=== PATIENT | male | born 1940 | race Caucasian/White ===

== ENCOUNTER → 2016-05-29 | Outpatient (CLI) | payer OTHER ==
[~2016-05-29] MED LIST: APIX1TAB3 PO; ASPI81TA28 PO; ATEN50TA8 PO; CHOL100010 PO; CLOB-65 TOP; KETO0.5S33 OPL; MULT-506 PO; NITR1CAP33 PO; NTRGSL/4 UT; PRED1SUS3 OPL; SIMV20TA2 PO; VITA400C15 PO
[2016-05-29 14:16] LABS: URINE APPEARANCE TURBID (CLEAR); URINE BILIRUBIN NEG (NEG); URINE COLOR DK YELLOW; URINE NITRITE NEG (NEG); URINE SPECIFIC GRAVITY 1.022 (1.000-1.030); UROBILINOGEN NEG (NEG)
[2016-05-29 14:19] LABS: MANUAL MICROSCOPIC REQUIRED? NO; REVIEW REQ? NO
== END | disposition home or self-care (01) ==
LOC: C.LABMFLN 11:15
PROVIDERS: ATTEND Urology
DX: R39.15 Urgency of urination (principal)

== ENCOUNTER → 2016-08-01 | Day surgery (SDC) | payer OTHER ==
[2016-07-05 10:29] VITALS: Ht 177.8 cm; Wt 92.3 kg
[~2016-08-01] VITALS: Ht 177.8 cm; Wt 92.3 kg
[~2016-08-01] MED LIST changes: +500ML BSS 0.3ML EPI 1:1000PF IRRIG ONE; +ACETAMINOPHEN 325 MG TAB PO PRN; +AMVISC PLUS 0.8ML SYRINGE INT OCU ONE; -ASPI81TA28 PO; +ATROPINE SULFATE 0.1 MG/ML 5ML SYR IV PRN; +BSS FLUSH ONE; +EpHEDrine SULFATE INJ 50 MG/ML AMP IV PRN; +EpINEphrine INJ 1MG/ML AMP 1 MG/ML AMP ONE; +FENTANYL CITRATE INJ 50 MCG/1 ML 2 ML VIAL IV PRN; +FLUMAZENIL 0.1 MG/1 ML 10 ML VIAL IV PRN; +HYDROmorphone INJ 2 MG/ML SYR/VIAL IV PRN; +LABETALOL HCL IV 5 MG/ML 20ML IV PRN; +LACTATED RINGER'S 1000ML 500 ML IV SCH; +LIDOCAINE 3.5% OPH GEL PER APPLICATION CHARGE ONE; +LIDOCAINE HCL 1% MPF 2 ML VIAL ONE; +MEPERIDINE HCL 25 MG/ML CARP IV PRN; +METO25TA56 PO; +MIDAZOLAM HCL 1 MG/ML 2ML VIAL ONE; +MIX: 4ML BSS 1ML EPI 1:1000 PF INSTIL ONE; +NALOXONE HCL 0.4 MG/1 ML VIAL/CARP IV PRN; +OCUCOAT 1 ML SOLN IO ONE; +ONDANSETRON INJ 2 MG/ML 2 ML VIAL IV PRN; +OXYC-57 PO; +PHENYLEPHRINE 100MCG/ML 5ML SYR IV PRN; +POVIDONE-IODINE OP SOLN 30 ML BTL ONE; +PROPARACAINE 0.5% OP SOLN PER DROP CHARGE OPL SCH; +TAMS0.4C38 PO; +TOBRAMYCIN/DEXAMETHASONE OPH OINT PER APPLN CHARGE ONE
[2016-08-01] MEDS: PHENYLEPHRINE HCL 2.5% OP SOLN PER DROP CHARGE OPL SCH ×2 (10:05→10:10)
[2016-08-01] MEDS: TROPICAMIDE 1% OP SOLN PER DROP CHARGE OPL SCH ×2 (10:06→10:11)
[2016-08-01] MEDS: CYCLOPENTOLATE HCL 1% OP SOLN PER DROP CHARGE OPL SCH ×2 (10:07→10:12)
[2016-08-01] MEDS: KETOROLAC 0.5% OP SOLN PER DROP CHARGE OPL SCH ×2 (10:08→10:13)
[2016-08-01] MEDS: GATIFLOXACIN OP SOLN PER DROP CHARGE OPL SCH ×2 (10:09→10:19)
--- NOTE | 2016-08-01 10:29 | History & Physical Bridge - [place] ---
H&P Re-Evaluation Bridge Note: I have examined the patient, reviewed the History & Physical and in the interval since the performance of the History & Physical I have noted the following changes of clinical significance: No changes noted
--- NOTE | 2016-08-01 11:15 | Discharge Instructions-SurgCtr ---
Discharge Instructions Date of Service August 01, 2016. Visit Reason for Visit: Left Cataract Discharge Discharge Diagnosis / Problem: cataract Discharge Goals Goal(s): Improve function Activity Recommendations Activity Limitations: per Instructions/Follow-up section Anesthesia . Post Anesthesia Instructions: If you have had General Anesthesia or IV Sedation: * Do not drive today. * Resume driving when surgeon permits. * Do not make important decisions or sign legal documents today. * Call surgeon for: 1. Temperature elevations greater than 101 degrees F. 2. Uncontrollable pain. 3. Excessive bleeding. 4. Persistent nausea and vomiting. 5. Medication intolerance (nausea, vomiting or rash). * For nausea and vomiting use only clear liquids such as: tea, soda, bouillon until nausea subsides, then gradually increase diet as tolerated. * If you have any concerns or questions, call your surgeon's office. If physician is unavailable and it is an emergency, call 911 or go to the nearest emergency room. . Instructions / Follow-Up Instructions / Follow-Up ACTIVITY RECOMMENDATIONS: * No strenuous lifting, jogging or running for 4 days * No swimming or yard work for 1 week. * Limited bending is permitted, such as putting on shoes. RETURN TO SCHOOL/WORK: No work until seen by physician in office. MEDICATIONS: Resume previous medications unless instructed otherwise by your surgeon. This includes eye drops for glaucoma. Zymaxid/Gatifloxacin (garcia cap) - one drop every 2 hours until bedtime Nevanac/Ilevro/Prolensa/Ketorolac (arias cap) - one drop every 4 hours until bedtime Prednisolone (white/pink cap, SHAKE WELL) - one drop every 2 hours until bedtime Starting tomorrow - all 3 drops every 4 hours until seen in the office Optive drops - as needed for discomfort SPECIAL CARE INSTRUCTIONS: * Wear eyeshield when sleeping, for four nights. * You may wear your own glasses or sunglasses while awake. * You may read or watch TV * You may shower and wash your face, but be gentle around the eye and pat dry. * Blurry vision and mild irritation are normal. * Call office if pain is more severe or vision becomes dark at . FOLLOW UP VISIT: Follow-up with Dr Spears tomorrow. Diet Recommendations Home Diet: resume previous diet Procedures Procedures Performed: Left Cataract Phacoemulsification With Intraocular Lens Implant Pending Studies Studies pending at discharge: no Medical Emergencies . Who to Call and When: Medical Emergencies: If at any time you feel your situation is an emergency, please call 911 immediately. . Non-Emergent Contact Non-Emergency issues call your: Super[employer] . . "Provider Documentation" section prepared by Nahid Spears. .
--- NOTE | 2016-08-01 11:16 | [facility] Operative Report ---
Operative Report Date of Service August 01, 2016. Operative Report 1. PREOPERATIVE DIAGNOSIS: Cataract of the left eye. 2. POSTOPERATIVE DIAGNOSIS: Same. 3. PROCEDURE: Phacoemulsification with intraocular lens implantation of the left eye. SURGEON: Dr. Nahid Spears. ANESTHESIA: Topical Lidocaine gel, 1% Non- Preserved intracameral Lidocaine, and monitored intravenous sedation. INDICATIONS FOR THE PROCEDURE: The patient is a 75 - year-old male with a history of cataract of the left eye causing significant visual impairment. The details of the proposed procedure were explained to the patient who asked appropriate questions and following discussion of all risks, benefits and alternatives agreed to have the procedure done. The patient had a know history of taking of flomax. 4. OPERATION AND FINDINGS: DESCRIPTION OF PROCEDURE: After informed consent was obtained, the patient was brought to the Operating Room at the [facility]. The patient was placed in a supine position and then the left eye was prepped and draped in the usual sterile fashion for intraocular surgery. A drop of topical Lidocaine gel was placed in the operative eye. A wire lid speculum was then placed in the fornices. A corneal paracentesis was then created temporally. The Non-Preserved Lidocaine was then instilled into the anterior chamber. Epinephrine with a 1:4 dilution was instilled into the anterior chamber. The anterior chamber was then pressurized with viscoelastic. A 2.0 mm clear corneal incision was then created temporally. A cystotome was inserted into the anterior chamber and used to create a tear in the anterior lens capsule. This capsular tear was then used to create a small flap and the flap was dragged in a counterclockwise direction in order to create a continuous curvilinear capsulorrhexis. Hydrodissection was accomplished with balanced salt solution. Phacoemulsification of the lens nucleus was then performed in a standard [id number] technique. The phaco time was 41 seconds with an average power of 18 %. The remaining cortical material was removed using irrigation aspiration. The capsular bag was then filled with viscoelastic. A B &L LI61A0 +19.5 diopters lens was then loaded into the injector and injected into the capsular bag. The remaining viscoelastic was removed with the irrigation aspiration handpiece. The wound was hydrated and then checked and found to be watertight. The intraocular pressure was checked and found to be adequate. The wire lid speculum was removed and the patient's face was cleaned and dried. TobraDex ointment was placed in the inferior fornix. The patient was discharged to the Recovery Room having tolerated the procedure well. There were no complications. The patient will be seen tomorrow in the office for follow-up. I attest to the content of the Intraoperative Record and any orders documented therein. Any exceptions are noted below.
[2016-08-01 11:46] VITALS: BP 112/79; PULSE 62; TEMP 37; O2SAT 95
--- NOTE | 2016-08-01 11:54 | Anesthesia Progress Nt - [facility] ---
Anesthesia Post Op Note Date & Time August 01, 2016 at 11:55 Vital Signs Pain Intensity: 0 Vital Signs Past 12 Hours Date Time Temp Pulse Resp B/P Pulse Ox O2 Delivery O2 Flow Rate FiO2 08/01/16 11:46 37.0 62 14 112/79 95 Room Air 08/01/16 11:25 37.0 88 14 115/82 96 Room Air 08/01/16 09:58 36.8 70 18 131/79 96 Room Air Notes Mental Status: alert / awake / arousable, participated in evaluation Pt Amnestic to Procedure: Yes Nausea / Vomiting: adequately controlled Pain: adequately controlled Airway Patency, RR, SpO2: stable & adequate BP & HR: stable & adequate Hydration State: stable & adequate Anesthetic Complications: no major complications apparent
== END | disposition home or self-care (01) ==
LOC: X.SURG 09:35
PROVIDERS: ATTEND Ophthalmology
DX: H26.9 Unspecified cataract (principal); I48.91 Unspecified atrial fibrillation; E78.00 Pure hypercholesterolemia, unspecified; L40.9 Psoriasis, unspecified; N40.0 Benign prostatic hyperplasia without lower urinary tract symptoms; R39.15 Urgency of urination; Z85.46 Personal history of malignant neoplasm of prostate; Z80.8 Family history of malignant neoplasm of other organs or systems; Z79.899 Other long term (current) drug therapy; Z79.82 Long term (current) use of aspirin

== ENCOUNTER → 2016-08-26 | Outpatient (CLI) | payer OTHER ==
[~2016-08-26] MED LIST changes: -500ML BSS 0.3ML EPI 1:1000PF IRRIG ONE; -ACETAMINOPHEN 325 MG TAB PO PRN; -AMVISC PLUS 0.8ML SYRINGE INT OCU ONE; -ATROPINE SULFATE 0.1 MG/ML 5ML SYR IV PRN; -BSS FLUSH ONE; -CHOL100010 PO; -CLOB-65 TOP; -EpHEDrine SULFATE INJ 50 MG/ML AMP IV PRN; -EpINEphrine INJ 1MG/ML AMP 1 MG/ML AMP ONE; -FENTANYL CITRATE INJ 50 MCG/1 ML 2 ML VIAL IV PRN; -FLUMAZENIL 0.1 MG/1 ML 10 ML VIAL IV PRN; -HYDROmorphone INJ 2 MG/ML SYR/VIAL IV PRN; -LABETALOL HCL IV 5 MG/ML 20ML IV PRN; -LACTATED RINGER'S 1000ML 500 ML IV SCH; -LIDOCAINE 3.5% OPH GEL PER APPLICATION CHARGE ONE; -LIDOCAINE HCL 1% MPF 2 ML VIAL ONE; -MEPERIDINE HCL 25 MG/ML CARP IV PRN; -MIDAZOLAM HCL 1 MG/ML 2ML VIAL ONE; -MIX: 4ML BSS 1ML EPI 1:1000 PF INSTIL ONE; -NALOXONE HCL 0.4 MG/1 ML VIAL/CARP IV PRN; -OCUCOAT 1 ML SOLN IO ONE; -ONDANSETRON INJ 2 MG/ML 2 ML VIAL IV PRN; -PHENYLEPHRINE 100MCG/ML 5ML SYR IV PRN; -POVIDONE-IODINE OP SOLN 30 ML BTL ONE; -PROPARACAINE 0.5% OP SOLN PER DROP CHARGE OPL SCH; -TOBRAMYCIN/DEXAMETHASONE OPH OINT PER APPLN CHARGE ONE; -VITA400C15 PO
[2016-08-26 13:43] LABS: CHOLESTEROL/HDL RATIO 2.5
== END | disposition home or self-care (01) ==
LOC: C.LABMFLN 09:44
PROVIDERS: ATTEND Family Medicine
DX: I48.91 Unspecified atrial fibrillation (principal); E78.00 Pure hypercholesterolemia, unspecified

== ENCOUNTER 2016-08-29 05:14 | Day surgery (SDC) | payer OTHER ==
--- NOTE | 2016-08-21 09:36 | PAT Medication Instructions ---
Service Date August 21, 2016. Current Home Medication List Apixaban (Eliquis), 5 MG PO BID Atenolol (Tenormin), 50 MG PO QPM Ketorolac Tromethamine (Ophth) (Acular Oph), 1 DROP OPL BID Nitroglycerin (Nitrostat), 0.4 MG UT PRN Prednisolone Acetate (Ophth) (Pred Forte 1% Oph), 1 DROPS OPL BID Simvastatin (Zocor), 20 MG PO QPM Medication Instructions For Your Scheduled Surgery - Check with surgeon/prescribing physician for instructions: Apixaban (Eliquis), 5 MG PO BID - Take the following medications the morning of surgery with a sip of water: Prednisolone Acetate (Ophth) (Pred Forte 1% Oph), 1 DROPS OPL BID Ketorolac Tromethamine (Ophth) (Acular Oph), 1 DROP OPL BID Nitroglycerin (Nitrostat), 0.4 MG UT PRN (if needed) - Take the following medications as scheduled the night before surgery: Simvastatin (Zocor), 20 MG PO QPM Prednisolone Acetate (Ophth) (Pred Forte 1% Oph), 1 DROPS OPL BID Ketorolac Tromethamine (Ophth) (Acular Oph), 1 DROP OPL BID Atenolol (Tenormin), 50 MG PO QPM Nitroglycerin (Nitrostat), 0.4 MG UT PRN (if needed) If you have any questions please call us at [phone] or [phone] or [phone]
[2016-08-21 10:12] LABS: BASO % 1.2 %; BASO ABS # 0.06 K/uL (0-0.2); COMPLETE YES; EOS % 4.8 %; IG% 0.8 %; LYMPH % 28.9 %; LYMPH ABS # 1.49 K/uL (1.2-3.4); MEAN CELL VOLUME 98.6 fL (80-100); MEAN CORPUSCULAR HEMOGLOBIN 33.3 pg (25-34); MEAN CORPUSCULAR HGB CONC 33.8 g/dl (32-36); MONO % 12.4 %; NEUT % 51.9 %; PLATELET COUNT 130 K/uL (130-400); RED BLOOD COUNT 4.26 M/uL (4.7-6.1); WHITE BLOOD COUNT 5.16 K/uL (4.8-10.8)
[2016-08-21 10:14] LABS: URINE APPEARANCE CLEAR (CLEAR); URINE BILIRUBIN NEG (NEG); URINE COLOR YELLOW; URINE NITRITE NEG (NEG); URINE SPECIFIC GRAVITY 1.027 (1.000-1.030); UROBILINOGEN NEG (NEG)
[2016-08-21 10:20] LABS: MANUAL MICROSCOPIC REQUIRED? NO; REVIEW REQ? NO
[2016-08-21 11:33] LABS: BUN/CREATININE RATIO 12.7 (10-20); CREATININE 0.88 mg/dl (0.60-1.40); POTASSIUM 5.6 mmol/L (3.5-5.1)
[~2016-08-29] VITALS: Ht 177.8 cm; Wt 95.6 kg
[~2016-08-29 05:14] MED LIST changes: -METO25TA56 PO; -MULT-506 PO; -NITR1CAP33 PO; -OXYC-57 PO; -TAMS0.4C38 PO
[2016-08-29 05:44] VITALS: BP 141/86; PULSE 68; TEMP 36.7; O2SAT 98; Ht 177.8 cm; Wt 95.6 kg
[2016-08-29] MEDS ORDERED: LACTATED RINGER'S 1000ML 1,000 ML IV SCH (06:00)
[2016-08-29] MEDS ORDERED: CIPROFLOXACIN / D5W 400 MG IV SCH (06:00)
[2016-08-29] MEDS ORDERED: FENTANYL CITRATE INJ 50 MCG/1 ML 2 ML VIAL ONE (06:54)
[2016-08-29] MEDS ORDERED: MIDAZOLAM HCL 1 MG/ML 2ML VIAL ONE (06:54)
[2016-08-29] MEDS ORDERED: KETAMINE HCL INJ 50 MG/ML 10 ML VIAL ONE (06:54)
[2016-08-29] MEDS ORDERED: PROPOFOL IV EMULSION 10 MG/ML 20 ML VIAL IV ONE (07:52)
[2016-08-29] MEDS ORDERED: EpHEDrine SULFATE 50MG/5ML SYR ONE (07:52)
[2016-08-29] MEDS ORDERED: LIDOCAINE HCL 2% 2 ML VIAL (20MG/ML) ONE (07:52)
[2016-08-29] MEDS ORDERED: LACTATED RINGER'S 1000ML 1,000 ML IV PRN (07:53)
[2016-08-29] MEDS ORDERED: METHYLENE BLUE 0.5% 10 ML VIAL ONE (07:53)
[2016-08-29] MEDS ORDERED: SODIUM CHLORIDE 0.9% INJ 10 ML VIAL ONE (07:55)
[2016-08-29] MEDS ORDERED: ONDANSETRON INJ 2 MG/ML 2 ML VIAL IV PRN (08:00)
--- NOTE | 2016-08-29 08:29 | [facility] Post Operative Brief Note ---
Immediate Operative Summary Operative Date Aug 29, 2016. Pre-Operative Diagnosis Bladder Cancer Post-Operative Diagnosis Bladder Cancer Procedure(s) Performed Cystoscopy, Transurethral Resection of Bladder Tumor and Random Bladder Biopsy Surgeon Dr. Hamlet Tate Bag Hanger Surgeon(s) None Estimated Blood Loss 5ml Findings several small superficial appearing bladder tumors around r ureteral orifice Specimens A. Bladder tumor to right lateral trigone tight prostatic urethra with moderate bladder trabeculation Anesthesia 20 cisneros
[2016-08-29] MEDS ORDERED: NITR1CAP33 PO (08:30)
--- NOTE | 2016-08-29 08:33 | Discharge Instructions ---
Discharge Instructions Date of Service Aug 29, 2016. Visit Reason for Visit: Bladder Tumor Discharge Discharge Diagnosis / Problem: post op bladder tumor removal Discharge Goals Goal(s): Decrease discomfort, Improve disease control Medications Restart Stopped Medication(s): elequis in 5 days if urine clear of blood hold if you see blood Activity Recommendations Activity Limitations: per Instructions/Follow-up section (light activity for 1 week) Anesthesia . Post Anesthesia Instructions: If you have had General Anesthesia or IV Sedation: * Do not drive today. * Resume driving when surgeon permits. * Do not make important decisions or sign legal documents today. * Call surgeon for: 1. Temperature elevations greater than 101 degrees F. 2. Uncontrollable pain. 3. Excessive bleeding. 4. Persistent nausea and vomiting. 5. Medication intolerance (nausea, vomiting or rash). * For nausea and vomiting use only clear liquids such as: tea, soda, bouillon until nausea subsides, then gradually increase diet as tolerated. * If you have any concerns or questions, call your surgeon's office. If physician is unavailable and it is an emergency, call 911 or go to the nearest emergency room. . Diet Recommendations Recommended Home Diet: resume previous diet Procedures Procedures Performed: Cystoscopy, Transurethral Resection of Bladder Tumor and Random Bladder Biopsy Pending Studies Studies pending at discharge: no Medical Emergencies . Who to Call and When: Medical Emergencies: If at any time you feel your situation is an emergency, please call 911 immediately. . Non-Emergent Contact Non-Emergency issues call your: Urologist Call Non-Emergent contact if: temperature is above 101, your pain is not controlled unable to void . . "Provider Documentation" section prepared by Hamlet Tate. .
[2016-08-29] MEDS: FENTANYL CITRATE INJ 50 MCG/1 ML 2 ML VIAL IV PRN ×3 (08:38→08:57)
[2016-08-29] MEDS ORDERED: PHENAZOPYRIDINE HCL 200 MG TAB PO ONE (08:54)
[2016-08-29] MEDS ORDERED: PHENAZOPYRIDINE HCL 100 MG TAB PO ONE (08:58)
[2016-08-29] MEDS ORDERED: NURSING VERBAL MED ORDER ONE (09:00)
--- NOTE | 2016-08-29 09:05 | OPERATIVE REPORT ---
DATE OF OPERATION: 08/29/2016 PREOPERATIVE DIAGNOSIS: Bladder tumor. POSTOPERATIVE DIAGNOSIS: Same. PROCEDURE PERFORMED: Small TURBT. SURGEON: Dr. Tate. ANESTHESIA: General. DRAINS: Howard. INDICATIONS: The patient is a 75-year-old male with a history of prostate cancer status post brachytherapy who is a patient of Dr. Abdi. He did cystoscopy on the patient and found several small bladder tumors near the right ureteral orifice. He scheduled the patient for outpatient TURBT, but because he was incapacitated secondary to some medical issues he requested that I do this procedure and the patient agreed. OPERATION AND FINDINGS: DESCRIPTION OF THE PROCEDURE: The patient was taken to the operating room where prior to this Venodyne stockings had been placed and he was given Cipro IV. He was placed in dorsal lithotomy position after general anesthesia was administered and prepped and draped in the usual sterile fashion. A 22 Divehi cystoscope was passed per urethra and the bladder was carefully examined with a 30, 70 and 110 degree lens. There were no strictures, but the prostatic urethra was quite stiff and there was an elevated bladder neck. Once inside the bladder it was clear that there were several small superficial appearing tumors, the largest were posterior lateral and posterior medial to the right ureteral orifice. These were biopsied and sent for pathology and then fulgurated anterior to the right ureteral orifice was biopsied and sent and also fulgurated. Random biopsy was taken in the posterior wall and 1 further area was fulgurated near the left ureteral orifice. It was somewhat difficult to see the right ureteral orifice, so I gave the patient methylene blue. 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 The left ureteral orifice was quite easily seen, but the right was somewhat difficult, and eventually since the methylene blue never came through I did place a dual flex guidewire into what I thought was the orifice to confirm that the right ureteral orifice was clear and nonobstructive. Photo was taken of this as well as the tumors. At the end of the procedure, there was no evidence of any visible bleeding. The cystoscope was removed and a 20 Divehi Howard catheter was placed. The patient was transferred to the recovery room in stable condition. I attest to the content of the Intraoperative Record and any orders documented therein. Any exception s are noted below.
--- NOTE | 2016-08-29 09:27 | Anesthesiology Progress Note ---
Anesthesia Post Op Note Date & Time Aug 29, 2016 at 09:27 Vital Signs Pain Intensity: 5 Vital Signs Past 12 Hours Date Time Temp Pulse Resp B/P (MAP) Pulse Ox O2 Delivery O2 Flow Rate FiO2 08/29/16 09:13 71 15 95 08/29/16 09:13 72 15 08/29/16 09:12 123/83 08/29/16 09:11 36.4 08/29/16 09:08 72 15 93 08/29/16 09:08 75 15 08/29/16 09:07 120/84 08/29/16 09:04 75 16 95 08/29/16 09:04 80 16 08/29/16 09:02 111/90 08/29/16 08:59 71 14 92 08/29/16 08:59 74 14 08/29/16 08:57 125/82 08/29/16 08:54 75 17 95 08/29/16 08:54 77 17 08/29/16 08:52 123/83 08/29/16 08:49 70 21 08/29/16 08:49 75 21 100 08/29/16 08:47 110/74 08/29/16 08:44 76 19 100 08/29/16 08:44 76 19 08/29/16 08:43 70 16 100 08/29/16 08:43 71 16 08/29/16 08:42 106/74 08/29/16 08:38 73 19 08/29/16 08:38 70 19 97 08/29/16 08:37 131/79 08/29/16 08:33 71 21 97 08/29/16 08:33 76 21 08/29/16 08:32 117/79 08/29/16 08:30 116/81 08/29/16 08:28 36.4 82 17 116/81 100 Mask 10 08/29/16 05:44 36.7 68 18 141/86 (104) 98 Room Air Notes Mental Status: alert / awake / arousable, participated in evaluation Pt Amnestic to Procedure: Yes Nausea / Vomiting: adequately controlled Pain: adequately controlled Airway Patency, RR, SpO2: stable & adequate BP & HR: stable & adequate Hydration State: stable & adequate Anesthetic Complications: no major complications apparent Pt did well.
[2016-08-29 09:35] VITALS: BP 122/77; PULSE 69; TEMP 36.7; O2SAT 93
[2016-08-29 09:55] VITALS: BP 127/76; PULSE 74; O2SAT 95
[2016-08-29 10:20] VITALS: BP 122/83; PULSE 78; TEMP 36.6; O2SAT 95
[2017-01-03] MEDS ORDERED: TAMS0.4C38 PO (13:26)
[2017-01-03] MEDS ORDERED: METO25TA56 PO (13:26)
[2017-01-03] MEDS ORDERED: APIX1TAB3 PO (13:26)
[2017-01-03] MEDS ORDERED: MULT-506 PO (13:27)
[2017-01-16] MEDS ORDERED: OXYC-57 PO (16:30)
== END 2016-08-29 10:30 | disposition home or self-care (01) ==
LOC: C.ACU 05:14
PROVIDERS: ATTEND Urology
DX: C67.5 Malignant neoplasm of bladder neck (principal); N30.20 Other chronic cystitis without hematuria; I48.91 Unspecified atrial fibrillation; E78.00 Pure hypercholesterolemia, unspecified; N52.9 Male erectile dysfunction, unspecified; Z85.46 Personal history of malignant neoplasm of prostate; Z79.82 Long term (current) use of aspirin; Z79.899 Other long term (current) drug therapy

== ENCOUNTER → 2016-09-18 | Outpatient (CLI) | payer OTHER ==
[~2016-09-18] MED LIST changes: -APIX1TAB3 PO; +NITR1CAP33 PO
== END | disposition home or self-care (01) ==
LOC: C.LABMFLN 09:14
PROVIDERS: ATTEND Urology
DX: C67.9 Malignant neoplasm of bladder, unspecified (principal)

== ENCOUNTER → 2017-06-02 | Outpatient (CLI) | payer OTHER ==
[~2017-06-02] MED LIST changes: +APIX1TAB3 PO; -ATEN50TA8 PO; -KETO0.5S33 OPL; +METO25TA56 PO; +MULT-506 PO; -NITR1CAP33 PO; +OXYC-57 PO; -PRED1SUS3 OPL
== END | disposition home or self-care (01) ==
LOC: C.LABMFLN 12:22
PROVIDERS: ATTEND Family Medicine
DX: R51 Headache (principal)

== ENCOUNTER → 2017-10-13 | Outpatient (CLI) | payer OTHER ==
[~2017-10-13] MED LIST changes: -OXYC-57 PO
[2017-10-13 13:04] LABS: BASO % 0.6 %; BASO ABS # 0.03 K/uL (0-0.2); EOS ABS # 0.25 K/uL (0-0.5); HEMATOCRIT 44.8 % (42-52); HEMOGLOBIN 14.9 g/dL (14.0-18.0); IG# 0.02 K/uL (0.00-0.02); LYMPH % 27.1 %; LYMPH ABS # 1.35 K/uL (1.2-3.4); MEAN CELL VOLUME 99.1 fL (80-100); MEAN CORPUSCULAR HGB CONC 33.3 g/dl (32-36); MEAN PLATELET VOLUME 11.1 fL (7.4-10.4); NEUT % 56.9 %; NEUT ABS # 2.84 K/uL (1.4-6.5); PLATELET COUNT 132 K/uL (130-400); RED CELL DISTRIBUTION WIDTH CV 12.4 % (11.5-14.5); RED CELL DISTRIBUTION WIDTH SD 45.1 fL (36.4-46.3); WHITE BLOOD COUNT 4.99 K/uL (4.8-10.8)
[2017-10-13 14:16] LABS: ALT/SGPT 27 U/L (12-78); AST/SGOT 22 U/L (15-37); BLOOD UREA NITROGEN 11 mg/dl (7-18); CALCIUM 8.8 mg/dl (8.5-10.1); CARBON DIOXIDE 29 mmol/L (21-32); CHOLESTEROL 132 mg/dl (0-200); CREATININE 0.88 mg/dl (0.60-1.40); GLUCOSE 99 mg/dl (70-99); LDL CHOLESTEROL CALCULATED 62 mg/dl; POTASSIUM 4.7 mmol/L (3.5-5.1); SODIUM 142 mmol/L (136-145)
== END | disposition home or self-care (01) ==
LOC: C.LABMFLN 09:44
PROVIDERS: ATTEND Family Medicine
DX: E78.00 Pure hypercholesterolemia, unspecified (principal); I48.91 Unspecified atrial fibrillation